=== PATIENT | female | born 1970 | race Caucasian/White ===

== ENCOUNTER 2020-12-12 03:26 | Inpatient (IN) | payer MEDICAID, SELFPAY ==
[~2020-12-12] VITALS: Ht 162.6 cm; Wt 66.3 kg
[~2020-12-12 03:26] MED LIST: AMLO10TA88 PO; APIX5TAB PO; BUSP10TA3 PO; CALC667T6 PO; CEL20 PO; DOCU-144 PO; FOLI0.8T42 PO; HYDR-3917 PO; HYDR-4037 PO; INSU100I20 SQ; LEVO125T PO; LEVO250T58 PO; LISI-209 PO; MIDO5TAB4 PO; REN800 PO; SSREG SUBCUT; TRAZ-250 PO
--- NOTE | 2020-12-12 03:31 | NUR ---
Placed in room 5 . Placed on athletic monitor, blood pressure machine and pulse oximeter. To gown for exam. Side rails up. Report given to Esequiel BAKER.
[2020-12-12 03:32] VITALS: BP_SYST 172
--- NOTE | 2020-12-12 03:42 | NUR ---
PT BIB [facility] FOR SOB X3 DAYS. [facility] AND HAS BEEN THERE FOR 4 MONTHS NOW. PT STATED SHE HAS BEEN FEELING SOB FOR 3 DAYS AND HAS BEEN ON O2 AND TOLD HER NURSE TO CALL 911 TODAY TO GO TO THE ER. HX OF CHF. PT HAS -PAIN. A&OX3. 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
--- NOTE | 2020-12-12 03:59 | NUR ---
RAD AT BEDSIDE
[2020-12-12] MEDS ORDERED: cefTRIAXone 1 GM IVPB PREMIX 50 ML IV ONE ×2 (04:15→04:28)
--- NOTE | 2020-12-12 04:27 | NUR ---
ER at bedside examining patient.
[2020-12-12 04:30] LABS: BASOPHILS % (AUTO) 0.3 % (0.0-2.0); EOSINOPHILS # (AUTO) 0.4 K/uL (0.0-0.4); EOSINOPHILS % (AUTO) 7.4 % (0.0-4.0); HEMATOCRIT 29.7 % (36-48); HEMOGLOBIN 9.9 g/dL (12.0-16.0); LYMPHOCYTES # (AUTO) 1.3 K/uL (1.0-5.5); LYMPHOCYTES % (AUTO) 22.5 % (20.5-51.5); MEAN CORPUSCULAR HEMOGLOBIN 30 pg (27-31); MEAN CORPUSCULAR HGB CONC 33 % (32-36); MEAN CORPUSCULAR VOLUME 90 fL (79.0-98.0); MONOCYTES # (AUTO) 0.5 K/uL (0.0-1.0); MONOCYTES % (AUTO) 8.3 % (1.7-9.3); NEUTROPHILS # (AUTO) 3.6 K/uL (1.8-7.7); NEUTROPHILS % (AUTO) 61.5 % (40.0-70.0); PLATELET COUNT (AUTO) 308 K/uL (130-430); RED BLOOD CELL COUNT(AUTO) 3.29 MIL/uL (4.2-6.2); RED CELL DISTRIBUTION WIDTH 16.5 % (9.0-15.0); WHITE BLOOD COUNT (AUTO) 5.8 K/uL (4.8-10.8)
[2020-12-12] MEDS ORDERED: LORazepam 2 MG/ML VIAL IVP ONE (04:30)
[2020-12-12 04:41] LABS: CALCIUM 9.3 mg/dL (8.4-11.0); CREATININE 4.48 mg/dL (0.55-1.30); POTASSIUM 4.6 mmol/L (3.5-5.1)
[2020-12-12] MEDS ORDERED: FUROSEMIDE 40 MG/4 ML VIAL IVP ONE (04:45)
[2020-12-12 04:47] LABS: ALBUMIN 2.4 g/dL (3.4-4.8); TOTAL BILIRUBIN 0.2 mg/dL (0.0-1.0)
--- NOTE | 2020-12-12 04:57 | NUR ---
pt is full code
--- NOTE | 2020-12-12 05:02 | NUR ---
BELONGINGS LIST COMPLETE
--- NOTE | 2020-12-12 05:09 | NUR ---
MED LIST COMPLETE
--- NOTE | 2020-12-12 07:30 | NUR ---
Assumed care of pt. Pt resting in bed no complaints.
--- NOTE | 2020-12-12 08:30 | NUR ---
Bedside glucose 111
[2020-12-12] MEDS: amLODIPine BESYLATE 10 MG TABLET PO SCH (09:00)
--- NOTE | 2020-12-12 09:00 | NUR ---
Pt resting in bed eating breakfast. No distress noted.
--- NOTE | 2020-12-12 13:00 | NUR ---
Pt eating lunch. Up in bedside chair playing on cell phone.
--- NOTE | 2020-12-12 15:00 | NUR ---
Page to Dr. Hernandez regarding dialysis and high blood pressure.
--- NOTE | 2020-12-12 15:58 | NUR ---
Patient will be admitted to care of [facility]. Admitted to tele unit. Will go to room 103-b. Belongings list completed. Complete and up to date summary report printed. SBAR report to be given at bedside with opportunity for questions.
--- NOTE | 2020-12-12 16:00 | NUR ---
ADMITTED 50 YEARS OLD FEMALE,A/OX4,HD CATHETER IN RIGHT UPPER CHEST.EDEMA IN BLE NOTED SALINE LOCK PATENT AND INTACT IN LEFT WRIST.NEEDS ATTENDED,CALL LIGHT & PERSONAL ITEMS WITHIN PT REACH,SAFETY MAINTAINED.DR.Y DURANT AND CALLED AND NOTIFIED CONSULT FOR CARDIOLOGY AND PULMONARY CONSULT.
[2020-12-12 16:54] VITALS: BP_SYST 173
[2020-12-12] MEDS ORDERED: HYDROcodone/ACETAMIN 5-325 MG TAB (NORCO/ VICODIN) PO PRN (17:45)
[2020-12-12] MEDS ORDERED: INSULIN REGULAR, HUMAN 100 UNITS/ML, 10 ML VIAL (humuLIN R) SUBCUT SCH (17:45)
--- NOTE | 2020-12-12 18:00 | NUR ---
BLOOD SUGAR 206 MG/DL.GIVE 4 UNITS REGULAR INSULINS PER SLIDING SCALE ORDER.DR.A DURANT CAME AND SEEN PT.PT C/O ANXIETY,GIVE ATIVAN 1 MG IV PRN ORDER FOR ANXIETY.
[2020-12-12] MEDS ORDERED: amLODIPine BESYLATE 10 MG TABLET PO ONE (18:15)
[2020-12-12] MEDS ORDERED: D5W 1,000 ML IV PRN (18:15)
[2020-12-12] MEDS ORDERED: GLUCOSE (DEXTROSE) ORAL GEL -Adults PO PRN (18:15)
[2020-12-12] MEDS ORDERED: INSULIN REGULAR, HUMAN 100 UNITS/ML, 10 ML VIAL (humuLIN R) SUBCUT PRN (18:15)
[2020-12-12] MEDS ORDERED: lisinopriL 5 MG TABLET PO ONE (18:15)
[2020-12-12] MEDS ORDERED: ACETAMINOPHEN 325 MG TABLET PO PRN (18:15)
[2020-12-12] MEDS ORDERED: DEXTROSE 50% JECT 50 ML DISP.SYRIN IVP PRN (18:15)
[2020-12-12] MEDS ORDERED: ONDANSETRON HCL 4 MG/2 ML VIAL IVP PRN (18:15)
[2020-12-12] MEDS: INSULIN REGULAR, HUMAN 100 UNITS/ML, 10 ML VIAL (humuLIN R) SUBCUT PRN (18:24)
[2020-12-12] MEDS: CALCIUM ACETATE 667 MG CAP PO SCH (18:35)
[2020-12-12] MEDS: SEVELAMER CARBONATE 800 MG TABLET PO SCH (18:35)
[2020-12-12] MEDS: LORazepam 2 MG/ML VIAL IVP PRN (18:35)
--- NOTE | 2020-12-12 19:00 | NUR ---
CALLED AND NOTIFIED OF RENAL CONSULT,ORDER RECEIVED FOR STAT HD TONIGHT, REPORT ENDORSED TO ONCOMING SHIFT NURSE.
--- NOTE | 2020-12-12 19:30 | NUR ---
Opening noted Received endorsement from day nurse. Pt has dialysis order stat. Pt in bed with HOB elevated. Alertx4, appears tired, states cant breath. Educate on breathing techniques and deep long breaths. Patient voice understanding. No distress noted, noted patient breathing shallow and short, non-labored. IV on right wrist SL patent and intact. All needs attended to. Call light within reach, bed to lowest/locked. On fall/aspiration precaution.
--- NOTE | 2020-12-12 19:45 | NUR ---
consent for hemodialysis signed by patient, voiced understanding. Order given to yard warehouse worker.
[2020-12-12 20:00] VITALS: BP_SYST 155
--- NOTE | 2020-12-12 20:30 | NUR ---
Myah dialysis nurse states she needs [address] Gusman and received order for hemodialysis x1 dose
[2020-12-12] MEDS ORDERED: SEVELAMER HCL Non-Formulary 800 MG TABLET PO SCH (21:00)
[2020-12-12] MEDS ORDERED: CALCIUM ACETATE 1334 MG PO SCH (21:00)
[2020-12-12] MEDS ORDERED: HEPARIN SODIUM, PORCINE 10,000 UNITS/ 10 ML VIAL MC ONE ×2 (21:15)
[2020-12-12] MEDS ORDERED: HEPARIN SODIUM,PORCINE 5,000 UNITS/ML VIAL ONE (21:44)
[2020-12-12] MEDS: traZODone HCL 50 MG TABLET (DESYREL) PO SCH (21:45)
[2020-12-12] MEDS: DOCUSATE SODIUM 100 MG CAPSULE PO SCH (21:45)
--- NOTE | 2020-12-12 21:45 | NUR ---
HIGH ALERT NOTE: Called Dr. Gusman back at identified within the medical roster to verify physician authenticity.
[2020-12-12] MEDS: APIXABAN 2.5 MG TABLET PO SCH (21:46)
--- NOTE | 2020-12-12 23:55 | NUR ---
Per goldstein dialysis nurse: 3L output from hemodialysis. B/P 147/85
[2020-12-13] MEDS: NORMAL SALINE 5 ML DISP.SYRIN IVF SCH ×4 (00:10→21:57)
[2020-12-13] MEDS: INSULIN GLARGINE 100 UNITS/ML 10 ML VIAL SUBCUT SCH ×2 (00:16→21:00)
[2020-12-13 01:04] VITALS: BP_SYST 147
--- NOTE | 2020-12-13 01:05 | NUR ---
note assisted patient to bedside commode. void/BM x1
--- NOTE | 2020-12-13 05:48 | NUR ---
Closing note Pt in bed sleeping and easily awaken. No distress or discomfort at this time. checked sugar for am and BS at 66. Had pt drink juice and remain/educate risk and benefits of snacking. Pt voice understanding. IV site patent and intact. All needs attended to. Call light within reach. Bed to lowest/lock/alarmed. On fall/aspiration precaution.
[2020-12-13] MEDS: LEVOTHYROXINE SODIUM 0.125 MG TABLET PO SCH (06:08)
--- NOTE | 2020-12-13 06:51 | NUR ---
Nutrition Update Baltazar Scale 17 noted. Pt admitted for Chest pain, Pleural effusion Diet: Cardiac BMI: 22.3 kg/m2 RD to follow per nutrition care standards.
[2020-12-13 06:53] LABS: BASOPHILS % (AUTO) 0.6 % (0.0-2.0); EOSINOPHILS # (AUTO) 0.4 K/uL (0.0-0.4); EOSINOPHILS % (AUTO) 8.1 % (0.0-4.0); HEMATOCRIT 27.2 % (36-48); HEMOGLOBIN 9.1 g/dL (12.0-16.0); MEAN CORPUSCULAR HEMOGLOBIN 30 pg (27-31); MEAN CORPUSCULAR HGB CONC 33 % (32-36); MEAN CORPUSCULAR VOLUME 90 fL (79.0-98.0); MONOCYTES # (AUTO) 0.5 K/uL (0.0-1.0); MONOCYTES % (AUTO) 9.8 % (1.7-9.3); NEUTROPHILS % (AUTO) 60.5 % (40.0-70.0); PLATELET COUNT (AUTO) 291 K/uL (130-430); RED BLOOD CELL COUNT(AUTO) 3.02 MIL/uL (4.2-6.2); RED CELL DISTRIBUTION WIDTH 16.2 % (9.0-15.0); WHITE BLOOD COUNT (AUTO) 4.9 K/uL (4.8-10.8)
[2020-12-13 07:02] LABS: CALCIUM 8.7 mg/dL (8.4-11.0); CREATININE 2.89 mg/dL (0.55-1.30); PHOSPHORUS 3.3 mg/dL (2.7-4.5); POTASSIUM 3.9 mmol/L (3.5-5.1)
[2020-12-13 08:00] VITALS: BP_SYST 152
[2020-12-13] MEDS: CALCIUM ACETATE 667 MG CAP PO SCH ×3 (08:00→18:20)
[2020-12-13] MEDS: SEVELAMER CARBONATE 800 MG TABLET PO SCH ×3 (08:00→18:20)
[2020-12-13] MEDS: DOCUSATE SODIUM 100 MG CAPSULE PO SCH ×2 (10:13→21:40)
[2020-12-13] MEDS: NEPHROVITE, (FOLIC ACID/VITAMIN B COMP W-C 1 TAB) PO SCH ×3 (10:13→12:55)
[2020-12-13] MEDS: amLODIPine BESYLATE 10 MG TABLET PO SCH (10:14)
[2020-12-13] MEDS: MIDODRINE HCL 5 MG TABLET (PROAMATINE) PO SCH (10:14)
[2020-12-13] MEDS: APIXABAN 2.5 MG TABLET PO SCH ×2 (10:18→21:40)
[2020-12-13] MEDS: lisinopriL 5 MG TABLET PO SCH (11:00)
[2020-12-13 12:00] VITALS: BP_SYST 153
[2020-12-13] MEDS: LORazepam 2 MG/ML VIAL IVP PRN (15:40)
[2020-12-13 16:00] VITALS: BP_SYST 145
[2020-12-13 20:00] VITALS: BP_SYST 156
--- NOTE | 2020-12-13 20:00 | NUR ---
INITIAL NOTES; PT IS ALERT AND ORIENTED ; NOT IN ANY ACUTE DISTRESS; DENIED ANY PAIN ; PT IS WORRIED ABOUT HER HEALTH , STATED" THERE IS A LOT GOING ON , ITS TOO MUCH " . ASSESSMENT DONE ; BED IN LOW AND LOCK POSITION , CALL MANZO IN REACH ; WILL CONTINUE TO MONITOR .TELEMONITOR IS SR .
[2020-12-13] MEDS: traZODone HCL 50 MG TABLET (DESYREL) PO SCH (21:39)
[2020-12-13] MEDS: INSULIN REGULAR, HUMAN 100 UNITS/ML, 10 ML VIAL (humuLIN R) SUBCUT PRN (21:54)
--- NOTE | 2020-12-13 21:58 | NUR ---
MEDICATION: DUE MEDS GIVEN , PT REFUSED LANTUS , EDUCATED PT THE IMPORTANCE OF TAKING MEDICATION ; PT STATED "IT DROPS MY BS , IT HAPPENED LAST NIGHT ALSO , I DON'T NEED IT " . PROVIDED REGULAR INSULIN COVERAGE , PT IS OK TO TAKE REGULAR INSULIN .
[2020-12-14] MEDS: LORazepam 2 MG/ML VIAL IVP PRN ×3 (00:11→21:33)
--- NOTE | 2020-12-14 00:11 | NUR ---
MEDICATION : PT CALLED AND STATED SHE IS VERY ANXIOUS , ASKED FOR MEDICATION , PROVIDED ATIVAN PER ORDER . WILL CONTINUE TO MONITOR PT .
[2020-12-14 00:30] VITALS: BP_SYST 154
[2020-12-14 02:10] VITALS: BP_SYST 154
--- NOTE | 2020-12-14 02:48 | NUR ---
RN NOTES: PT IS SLEEPING , NOT IN ANY ACUTE DISTRESS; RESPIRATION IS EVEN AND NON LABORED ; WILL CONTINUE TO MONITOR PT .
--- NOTE | 2020-12-14 04:27 | NUR ---
RN NOTES: PT IS SLEEPING , RESPIRATION IS EVEN AND NON LABORED ; WILL CONTINUE TO MONITOR PT .
[2020-12-14] MEDS: NORMAL SALINE 5 ML DISP.SYRIN IVF SCH ×3 (06:11→21:44)
[2020-12-14] MEDS: LEVOTHYROXINE SODIUM 0.125 MG TABLET PO SCH (06:12)
--- NOTE | 2020-12-14 06:19 | NUR ---
MEDICATION/ O2 : DUE MEDS GIVEN PER ORDER , BLOOD SUGAR 102, NO COVERAGE NEEDED ; PT WAS SAT 98% AND ABOVE ALL NIGHT ON 4 L NC , REDUCED O2 TO 2 L NC WILL MONITOR PT . RIGHT NOW PT IS SAT 97% ON 2 L NC .
--- NOTE | 2020-12-14 06:53 | NUR ---
CONSULTATION PAGED/CALLED Reason for Consultation: [] ESRD Person Who was Notified: [] DR FREY Consulting Physician: [] DR FREY Sewing Techniques Demonstrator Specialty: [] NEPHRO Ordering Physician: [] DR Clarice DURANT
--- NOTE | 2020-12-14 06:55 | NUR ---
CONSULTATION PAGED/CALLED Reason for Consultation: [] RESP DIST Person Who was Notified: [] DR GRANT Consulting Physician: [] DR GRANT Dictaphone Technician Specialty: [] PULMO Ordering Physician: [] DR DURANT
--- NOTE | 2020-12-14 06:57 | NUR ---
CLOSING NOTES: PT IS SLEEPING , NOT IN ANY ACUTE DISTRESS; RESPIRATION IS EVEN AND NON LABORED ; ALL NEEDS ATTENDED ;WILL CONTINUE TO MONITOR AND WILL ENDORSE TO NEXT SHIFT NURSE .
[2020-12-14 07:02] LABS: BASOPHILS % (AUTO) 0.6 % (0.0-2.0); EOSINOPHILS # (AUTO) 0.4 K/uL (0.0-0.4); HEMOGLOBIN 9.2 g/dL (12.0-16.0); LYMPHOCYTES # (AUTO) 1.6 K/uL (1.0-5.5); LYMPHOCYTES % (AUTO) 26.7 % (20.5-51.5); MEAN CORPUSCULAR HEMOGLOBIN 30 pg (27-31); MEAN CORPUSCULAR HGB CONC 33 % (32-36); MEAN CORPUSCULAR VOLUME 90 fL (79.0-98.0); MONOCYTES # (AUTO) 0.7 K/uL (0.0-1.0); MONOCYTES % (AUTO) 10.8 % (1.7-9.3); NEUTROPHILS # (AUTO) 3.4 K/uL (1.8-7.7); NEUTROPHILS % (AUTO) 54.9 % (40.0-70.0); PLATELET COUNT (AUTO) 303 K/uL (130-430); RED CELL DISTRIBUTION WIDTH 16.6 % (9.0-15.0); WHITE BLOOD COUNT (AUTO) 6.1 K/uL (4.8-10.8)
--- NOTE | 2020-12-14 07:27 | NUR ---
CONSULTATION PAGED/CALLED Reason for Consultation: [] SOB Person Who was Notified: [] RACHAEL Consulting Physician: [] DR Smooth DURANT Dielectric Tester Specialty: [] CARDIO Ordering Physician: [] DR Clarice DURANT
[2020-12-14 07:51] LABS: CALCIUM 8.5 mg/dL (8.4-11.0); CREATININE 4.06 mg/dL (0.55-1.30); PHOSPHORUS 4.9 mg/dL (2.7-4.5); POTASSIUM 4.7 mmol/L (3.5-5.1)
[2020-12-14 08:00] VITALS: BP_SYST 153
--- NOTE | 2020-12-14 08:00 | NUR ---
OPENING NOTE PATIENT FOUND IN BED EATING BREAKFAST. VS OBTAINED AND PATIENT HAD NO COMPLAINTS OF PAIN OR DISCOMFORT. EXPLAINED PLAN OF CARE TO PATIENT. BED IS LOCKED AND IN LOWEST POSITION, RAILS UP AND CALL LIGHT IN REACH. WILL CONTINUE TO MONITOR.PATIENT IS SET FOR DIALYSIS TODAY, BP MEDICATIONS HELD.
[2020-12-14] MEDS: DOCUSATE SODIUM 100 MG CAPSULE PO SCH ×2 (08:19→21:30)
[2020-12-14] MEDS: CALCIUM ACETATE 667 MG CAP PO SCH ×3 (08:19→17:46)
[2020-12-14] MEDS: SEVELAMER CARBONATE 800 MG TABLET PO SCH ×3 (08:19→17:45)
[2020-12-14] MEDS: lisinopriL 5 MG TABLET PO SCH (08:20)
[2020-12-14] MEDS: MIDODRINE HCL 5 MG TABLET (PROAMATINE) PO SCH (08:20)
[2020-12-14] MEDS: amLODIPine BESYLATE 10 MG TABLET PO SCH (08:26)
[2020-12-14] MEDS: APIXABAN 2.5 MG TABLET PO SCH ×2 (08:26→21:33)
--- NOTE | 2020-12-14 08:26 | NUR ---
NURSING NOTE MARIBEL HELP FOR DIALYSIS THIS MORNING.
[2020-12-14] MEDS: INSULIN REGULAR, HUMAN 100 UNITS/ML, 10 ML VIAL (humuLIN R) SUBCUT PRN ×3 (11:42→21:43)
[2020-12-14 12:20] VITALS: BP_SYST 155
[2020-12-14] MEDS ORDERED: HEPARIN SODIUM,PORCINE 5,000 UNITS/ML VIAL IV ONE (12:45)
--- NOTE | 2020-12-14 12:54 | NUR ---
nurse note 10,000units of heparin ordered for dialysis nurse, administered by dialysis nurse.
--- NOTE | 2020-12-14 15:17 | NUR ---
Nutrition Note RN notified RD that pt is on dialysis and has been receiving orange juice and other items on meal tray that are not appropriate for pt's condition. RD reviewed pt's EMR. Pt may benefit from a renal, diabetic diet. RD downgraded pt's diet to better meet nutritional needs at this time. Pt is due to be seen for a complete Nutrition Assessment between 12/15-12/17 as per moderate nutritional risk policy and procedure.
[2020-12-14 16:33] VITALS: BP_SYST 149
--- NOTE | 2020-12-14 19:15 | NUR ---
OPENING NOTES: Received patient report from morning shift rn. Patient in bed, AAOx4, breathing evenly and nonlabored on 2L of O2 via NC, no s/s of distress. Patient has an IV on the L wrist 22g, patent, benign and flushing. No s/s of infection or infiltration. Fall/safety precaution. Call light within reach. Educated patient on plan of care. Will continue to monitor.
--- NOTE | 2020-12-14 19:19 | NUR ---
Closing note Patient awake, sitting up eating dinner. Patient currently has no complaints of pain or discomfort. patient is on 2lt NC , O2 sat at 99% with even , non labored breathing.No signs of distress noted. IV is patent and intact. Safety, fall and aspiration precautions in place. Call light in reach, bed is locked and in lowest position with two rails up. Will endorse to load checker.
[2020-12-14 20:00] VITALS: BP_SYST 161
[2020-12-14] MEDS: INSULIN GLARGINE 100 UNITS/ML 10 ML VIAL SUBCUT SCH ×2 (21:00→21:42)
[2020-12-14] MEDS: traZODone HCL 50 MG TABLET (DESYREL) PO SCH (21:31)
[2020-12-14] MEDS: hydrALAZINE HCL 10 MG TABLET PO PRN (21:31)
--- NOTE | 2020-12-14 21:42 | NUR ---
MEDICATION: DUE MEDS GIVEN , PT REFUSED LANTUS , EDUCATED PT THE IMPORTANCE OF TAKING MEDICATION ; PT STATED "IT DROPS MY BS". PROVIDED REGULAR INSULIN COVERAGE , PT IS OK TO TAKE REGULAR INSULIN .
--- NOTE | 2020-12-15 | NUR ---
ROUNDS: Patient in bed, eyes closed breathing evenly and nonlabored on 2L of O2 via nc. No s/s of distress. Will continue to monitor.
[2020-12-15 00:30] VITALS: BP_SYST 139
[2020-12-15] MEDS: LEVOTHYROXINE SODIUM 0.125 MG TABLET PO SCH (06:27)
[2020-12-15] MEDS: NORMAL SALINE 5 ML DISP.SYRIN IVF SCH ×3 (06:28→21:19)
--- NOTE | 2020-12-15 06:57 | NUR ---
CLOSING NOTES: Patient in bed, AAOx4, breathing evenly and nonlabored on 2L of O2 via NC, no s/s of distress. Patient has an IV on the L wrist 22g, patent, benign and flushing. No s/s of infection or infiltration. Fall/safety precaution. Call light within reach. Will continue to monitor and endorse care to morning shift rn.
[2020-12-15 07:01] LABS: BASOPHILS % (AUTO) 0.5 % (0.0-2.0); EOSINOPHILS # (AUTO) 0.5 K/uL (0.0-0.4); EOSINOPHILS % (AUTO) 7.3 % (0.0-4.0); HEMATOCRIT 27.3 % (36-48); HEMOGLOBIN 9.2 g/dL (12.0-16.0); LYMPHOCYTES # (AUTO) 1.5 K/uL (1.0-5.5); LYMPHOCYTES % (AUTO) 23.1 % (20.5-51.5); MEAN CORPUSCULAR HEMOGLOBIN 31 pg (27-31); MEAN CORPUSCULAR HGB CONC 34 % (32-36); MEAN CORPUSCULAR VOLUME 91 fL (79.0-98.0); MONOCYTES # (AUTO) 0.7 K/uL (0.0-1.0); MONOCYTES % (AUTO) 10.2 % (1.7-9.3); NEUTROPHILS # (AUTO) 3.8 K/uL (1.8-7.7); NEUTROPHILS % (AUTO) 58.9 % (40.0-70.0); PLATELET COUNT (AUTO) 299 K/uL (130-430); RED CELL DISTRIBUTION WIDTH 16.5 % (9.0-15.0); WHITE BLOOD COUNT (AUTO) 6.4 K/uL (4.8-10.8)
[2020-12-15 07:38] LABS: CALCIUM 8.5 mg/dL (8.4-11.0); CREATININE 3.17 mg/dL (0.55-1.30); PHOSPHORUS 3.6 mg/dL (2.7-4.5); POTASSIUM 4.2 mmol/L (3.5-5.1)
[2020-12-15 08:00] VITALS: BP_SYST 156
[2020-12-15] MEDS: APIXABAN 2.5 MG TABLET PO SCH ×2 (08:45→21:17)
[2020-12-15] MEDS: DOCUSATE SODIUM 100 MG CAPSULE PO SCH ×2 (08:46→21:16)
[2020-12-15] MEDS: MIDODRINE HCL 5 MG TABLET (PROAMATINE) PO SCH (08:46)
[2020-12-15] MEDS: CALCIUM ACETATE 667 MG CAP PO SCH ×3 (08:46→18:07)
[2020-12-15] MEDS: amLODIPine BESYLATE 10 MG TABLET PO SCH (08:47)
[2020-12-15] MEDS: lisinopriL 5 MG TABLET PO SCH (08:47)
[2020-12-15] MEDS: SEVELAMER CARBONATE 800 MG TABLET PO SCH ×3 (08:48→18:07)
[2020-12-15] MEDS: NEPHROVITE, (FOLIC ACID/VITAMIN B COMP W-C 1 TAB) PO SCH (08:48)
--- NOTE | 2020-12-15 11:23 | NUR ---
INFORMED TUMBLER PLATER RAMONA IS OFF MONITOR, LEADS OFF. Addendum: 12/15/20 at 1124 by Tracy Camarillo NC/ CORRECTION PATIENT IS OFF MONITOR
[2020-12-15] MEDS: LORazepam 2 MG/ML VIAL IVP PRN ×2 (11:44→22:23)
[2020-12-15 12:00] VITALS: BP_SYST 162
--- NOTE | 2020-12-15 15:59 | NUR ---
DISCHARGE PLANNING Faxed updated pt info to [facility] for possible weekend dc.
[2020-12-15 16:17] VITALS: BP_SYST 156
[2020-12-15 19:30] VITALS: BP_SYST 157
--- NOTE | 2020-12-15 19:30 | NUR ---
initial note patient is stable and laying in bed. no s/s of respiratory distress noted. call light in reach. patient successfully demonstrates usage of call light. bed is locked, and at the lowest position. patient educated on bed alarm, pt refused. fall, safety, aspiration, and respiratory precautions will be in place throughout the shift. plan of care is discussed with patient.
[2020-12-15] MEDS: INSULIN GLARGINE 100 UNITS/ML 10 ML VIAL SUBCUT SCH (21:00)
[2020-12-15] MEDS: INSULIN REGULAR, HUMAN 100 UNITS/ML, 10 ML VIAL (humuLIN R) SUBCUT PRN (21:12)
[2020-12-15] MEDS: traZODone HCL 50 MG TABLET (DESYREL) PO SCH (21:16)
[2020-12-16] VITALS: BP_SYST 150
[2020-12-16] MEDS: LEVOTHYROXINE SODIUM 0.125 MG TABLET PO SCH (06:11)
[2020-12-16] MEDS: NORMAL SALINE 5 ML DISP.SYRIN IVF SCH ×2 (06:12→11:30)
--- NOTE | 2020-12-16 07:09 | NUR ---
closing note sbar report endorsed to am nurse. pt is laying in bed sleeping. no s/s of respiratory distress noted. call light in reach. bed is locked, alarmed, and at the lowest position. fall, safety,aspiration, and respiratory distress has been in place throughout the shift.
[2020-12-16 07:33] VITALS: BP_SYST 142
[2020-12-16 07:37] LABS: BASOPHILS % (AUTO) 0.4 % (0.0-2.0); EOSINOPHILS # (AUTO) 0.5 K/uL (0.0-0.4); EOSINOPHILS % (AUTO) 7.1 % (0.0-4.0); HEMATOCRIT 28.9 % (36-48); HEMOGLOBIN 9.6 g/dL (12.0-16.0); LYMPHOCYTES # (AUTO) 1.3 K/uL (1.0-5.5); MEAN CORPUSCULAR HEMOGLOBIN 30 pg (27-31); MEAN CORPUSCULAR HGB CONC 33 % (32-36); MEAN CORPUSCULAR VOLUME 91 fL (79.0-98.0); MONOCYTES # (AUTO) 0.7 K/uL (0.0-1.0); MONOCYTES % (AUTO) 11.1 % (1.7-9.3); NEUTROPHILS # (AUTO) 4.1 K/uL (1.8-7.7); NEUTROPHILS % (AUTO) 61.4 % (40.0-70.0); PLATELET COUNT (AUTO) 317 K/uL (130-430); RED BLOOD CELL COUNT(AUTO) 3.19 MIL/uL (4.2-6.2); RED CELL DISTRIBUTION WIDTH 16.4 % (9.0-15.0); WHITE BLOOD COUNT (AUTO) 6.7 K/uL (4.8-10.8)
[2020-12-16] MEDS: CALCIUM ACETATE 667 MG CAP PO SCH ×3 (08:47→18:23)
[2020-12-16] MEDS: APIXABAN 2.5 MG TABLET PO SCH (08:47)
[2020-12-16] MEDS: NEPHROVITE, (FOLIC ACID/VITAMIN B COMP W-C 1 TAB) PO SCH (08:47)
[2020-12-16] MEDS: SEVELAMER CARBONATE 800 MG TABLET PO SCH ×3 (08:47→18:23)
[2020-12-16] MEDS: DOCUSATE SODIUM 100 MG CAPSULE PO SCH (08:47)
[2020-12-16] MEDS: lisinopriL 5 MG TABLET PO SCH (08:48)
[2020-12-16] MEDS: MIDODRINE HCL 5 MG TABLET (PROAMATINE) PO SCH (08:48)
[2020-12-16 09:07] LABS: CALCIUM 8.6 mg/dL (8.4-11.0); CREATININE 3.92 mg/dL (0.55-1.30); POTASSIUM 4.4 mmol/L (3.5-5.1)
[2020-12-16] MEDS ORDERED: PHEDM120 PO (10:21)
[2020-12-16] MEDS ORDERED: BENZ-16 PO (10:21)
[2020-12-16] MEDS: INSULIN REGULAR, HUMAN 100 UNITS/ML, 10 ML VIAL (humuLIN R) SUBCUT PRN ×2 (11:10→17:10)
--- NOTE | 2020-12-16 11:15 | NUR ---
Case mgt: I rec'd discharge order for SNF after HD today-I called [facility] at [phone]-s/w Poppy who said pt will return to her bed#39B--I called [facility] at [phone] (they answered by name of "Kayla" but per Chapis, they are [facility]) to check who is contracted transportation provider--Chapis will call me back and she was made aware pt requires 02 2L/NC during transport back to SNF--pt aware of dc after HD today and said she uses [facility] transport van to HD usually. Nurse Jessi aware of dc order after HD--ASHLEY BAKER
--- NOTE | 2020-12-16 11:25 | NUR ---
CM: I faxed dc orders to snf to [facility] at fax#[phone]--CB#[phone]--I am waiting for callback for contracted ambulance. ASHLEY BAKER Addendum: 12/16/20 at 1128 by Bessy Navarrete RN The ph#[phone] is for [facility]
[2020-12-16] MEDS: amLODIPine BESYLATE 10 MG TABLET PO SCH (11:26)
--- NOTE | 2020-12-16 11:35 | NUR ---
Case mgt: Kwadwo Doherty at [facility], use [facility] ambulance for transport back to [facility]--auth#[id number]--B called [facility] @[phone]-s/w Nellie and put BLS ambulance on will-call--taking SNF packet to nursing station--The SNF needs a call with ETA for pt-call SNF at [phone] to notify of ETA--DISPO code 03- RN
[2020-12-16 12:00] VITALS: BP_SYST 161
[2020-12-16] MEDS ORDERED: COMMUNICATION ORDER XX ONE (12:00)
--- NOTE | 2020-12-16 12:00 | NUR ---
HIGH ALERT NOTE: Called Dr. Gordillo back at phone no [phone] identified within the medical roster to verify physician authenticity Heparin 5000 unitx x 2 dose post hemodialysis port
[2020-12-16] MEDS: LORazepam 2 MG/ML VIAL IVP PRN ×2 (12:08→22:50)
--- NOTE | 2020-12-16 12:17 | NUR ---
Premedicate patient with Ativan prior to HD due to anxiety, nauseated but refused for medication., vitals sign monitored.
--- NOTE | 2020-12-16 12:28 | NUR ---
CM: notified Tricia at [facility] SNF at [phone] pt ETA around 6pm--gave Tricia our nursing station ph# also and that nurse Jessi will call report after HD today--ASHLEY BAKER
[2020-12-16] MEDS ORDERED: HEPARIN SODIUM,PORCINE 5,000 UNITS/ML VIAL MC ONE (13:00)
--- NOTE | 2020-12-16 13:20 | NUR ---
Spoke to brother Suarez Tobi informed regarding discharge to SNF today
[2020-12-16 14:33] VITALS: BP_SYST 157
--- NOTE | 2020-12-16 14:41 | NUR ---
ARRANGED AND CONFIRMED WITH [facility] BLS TRANSPORT TO [facility], PICK TIME BETWEEN 1730 TO 1800. SPOKE TO ROOSEVELT.
--- NOTE | 2020-12-16 14:45 | NUR ---
Report given to [facility] Tati Clarke /WINTER @ 1448 HR , Zac all the information.
[2020-12-16 15:09] VITALS: BP_SYST 156
--- NOTE | 2020-12-16 15:16 | NUR ---
Hemodialysis completed . lunch served, patient aware regarding discharge order today to SNF and agreed
[2020-12-16] MEDS: hydrALAZINE HCL 10 MG TABLET PO PRN (17:37)
--- NOTE | 2020-12-16 17:42 | NUR ---
Blood pressure elevated no headache , PRN meds given , ambulance [facility] kept on will call.
--- NOTE | 2020-12-16 17:51 | NUR ---
[facility] CAME TO TRANSPORT PT TO [facility]. BUT PT HAS HIGH BP. PT WAS PUT BACK ON WILL CALL STATUS. SPOKE TO PHILIP OF [facility]
[2020-12-16] MEDS ORDERED: cloNIDine HCL 0.1 MG TABLET PO ONE ×2 (18:30→20:45)
--- NOTE | 2020-12-16 22:06 | NUR ---
CALLED [facility] ABOUT HIGH BLOOD PRESSURE AND DISCHARGE DELAYS Talked with charge nurse Marjorie, stated it is ok to send patient despite blood pressure 164/96. Dr. Hernandez made aware, states it is okay to discharge. Also orders hydralazine 50mg PO once.
[2020-12-16] MEDS ORDERED: hydrALAZINE HCL 25 MG TABLET PO ONE (22:15)
--- NOTE | 2020-12-16 23:59 | NUR ---
PATIENT TRANSFERRED BY [facility] WITH EMT AT THIS TIME Escorted by 2 municipal bond trader via [facility]
== END 2020-12-16 23:54 | DRG 194 ==
LOC: SED 03:26 → STU 09:00
PROVIDERS: ADMIT Preventive Medicine Preventive Medicine/Occupational Environmental Medicine; ATTEND Preventive Medicine Preventive Medicine/Occupational Environmental Medicine
PROC: 5A1D70Z Performance of Urinary Filtration, Intermittent, Less than 6 Hours Per Day (ICD-10-PCS; principal; 2020-12-12)
PROC: 5A1D70Z Performance of Urinary Filtration, Intermittent, Less than 6 Hours Per Day (ICD-10-PCS; 2020-12-14)
PROC: 5A1D70Z Performance of Urinary Filtration, Intermittent, Less than 6 Hours Per Day (ICD-10-PCS; 2020-12-16)
DX: I13.2 Hypertensive heart and chronic kidney disease with heart failure and with stage 5 chronic kidney disease, or end stage renal disease (principal); J96.01 Acute respiratory failure with hypoxia; I26.99 Other pulmonary embolism without acute cor pulmonale; G61.0 Guillain-Barre syndrome; J91.8 Pleural effusion in other conditions classified elsewhere; D63.8 Anemia in other chronic diseases classified elsewhere; E83.39 Other disorders of phosphorus metabolism; N17.9 Acute kidney failure, unspecified; E83.41 Hypermagnesemia; E88.09 Other disorders of plasma-protein metabolism, not elsewhere classified; N18.6 End stage renal disease; E03.9 Hypothyroidism, unspecified; E11.21 Type 2 diabetes mellitus with diabetic nephropathy; E11.22 Type 2 diabetes mellitus with diabetic chronic kidney disease; E11.65 Type 2 diabetes mellitus with hyperglycemia; I25.10 Atherosclerotic heart disease of native coronary artery without angina pectoris; Z20.822 Contact with and (suspected) exposure to COVID-19; Z79.01 Long term (current) use of anticoagulants; Z86.711 Personal history of pulmonary embolism; Z99.2 Dependence on renal dialysis; Z79.899 Other long term (current) drug therapy; Z88.5 Allergy status to narcotic agent; Z91.018 Allergy to other foods; I50.43 Acute on chronic combined systolic (congestive) and diastolic (congestive) heart failure
CPT/HCPCS: 36415; 71045; 80048; 80053; 82962; 83735; 83880; 84100; 84484; 85025; 87040-TC; 87081; 90935; 90937; 93005; 93306; 93970; 96365; 96375; 99285; G0378; J0696; J1644; J1815; J1940; J2060